=== PATIENT | male | born 1990 | race Caucasian/White ===

== ENCOUNTER 2016-07-17 05:31 | Emergency (ER) | payer OTHER ==
[~2016-07-17] VITALS: Ht 190.5 cm; Wt 75.0 kg
[~2016-07-17 05:31] MED LIST: BACTRIM DS 8001 TAB PO; CEPHALEXIN500 M1 PO; DESYREL 50MG50 MG PO; DOXYCYCLINE 10100 MG PO; LEVOXYL0.025 MG PO; MIRTAZAPINE7.5 MG PO
[2016-07-17] MEDS ORDERED: ZOLOFT 25MG25 MG PO (05:39)
[2016-07-17] MEDS ORDERED: KLONOPIN 0.5MG0.5 MG PO ×2 (05:39→05:40)
[2016-07-17 05:40] VITALS: TEMP 98.1
[2016-07-17 06:28] VITALS: BP 148/89; PULSE 80
== END 2016-07-17 06:30 | disposition home or self-care (01) ==
LOC: COL.ER 05:31
DX: F41.0 Panic disorder [episodic paroxysmal anxiety] (principal); F43.10 Post-traumatic stress disorder, unspecified; T42.4X6A Underdosing of benzodiazepines, initial encounter
CPT/HCPCS: J2060

== ENCOUNTER 2016-07-22 10:27 | Emergency (ER) | payer OTHER ==
[~2016-07-22] VITALS: Ht 190.5 cm; Wt 75.0 kg
[~2016-07-22 10:27] MED LIST changes: +KLONOPIN 0.5MG0.5 MG PO; +ZOLOFT 25MG25 MG PO
[2016-07-22 10:34] VITALS: BP 142/80; TEMP 98.2
[2016-07-22] MEDS ORDERED: ATIVAN 0.50.5 MG/TAB PO (10:52)
[2016-07-22 11:50] VITALS: PULSE 94
== END 2016-07-22 11:51 | disposition home or self-care (01) ==
LOC: COL.ER 10:27
DX: F41.9 Anxiety disorder, unspecified (principal); T42.4X6A Underdosing of benzodiazepines, initial encounter; Z91.138 Patient's unintentional underdosing of medication regimen for other reason; R11.2 Nausea with vomiting, unspecified
CPT/HCPCS: J2060; J7030

== ENCOUNTER 2016-11-01 12:41 | Inpatient (IN) | payer OTHER ==
[~2016-11-01] VITALS: Ht 190.5 cm; Wt 63.6 kg
[~2016-11-01 12:41] MED LIST changes: +ATIVAN 0.50.5 MG/TAB PO
[2016-11-01 13:21] LABS: VENOUS BLOOD GAS BE -9.4 (-4-4); VENOUS BLOOD GAS SAO2 74.4 % (60-80)
[2016-11-01 13:22] LABS: BASO % 0.3 % (0.0-2.0); EOS % 0.1 % (0-4.0); GRAN # 11.7 (1.4-6.5); GRAN % 84.5 % (42.2-75.2); HEMATOCRIT 43.7 % (42.0-52.0); HEMOGLOBIN 15.3 g/dl (13.5-18.0); LYMPH # 0.7 (1.2-3.4); LYMPH % 5.2 % (20.0-51.0); MEAN CELL VOLUME 91 fl (80.0-100.0); MEAN CORPUSCULAR HEMOGLOBIN 32 pg (27.0-31.0); MEAN CORPUSCULAR HGB CONC 35 g/dl (33.0-37.0); MEAN PLATELET VOLUME 8.4 fl (7.4-10.4); MONO # 1.3 (0.1-0.6); MONO % 9.2 % (1.7-9.3); PLATELET COUNT 72 K/mm3 (130-400); RED BLOOD COUNT 4.82 M/mm3 (4.20-5.60); REDCELL DISTRIBUTION WIDTH-CV 11.7 % (11.5-14.5); WHITE BLOOD COUNT 13.8 K/mm3 (4.8-10.8)
[2016-11-01 13:23] LABS: VENOUS BLOOD GAS SITE VENIPUNCTURE
[2016-11-01 13:27] LABS: PROTHROMBIN TIME 11.2 SECONDS (9.7-12.8)
[2016-11-01 13:33] LABS: ADJUSTED CALCIUM 8.4 mg/dL (8.4-10.2); ALANINE AMINOTRANSFERASE 80 U/L (21-72); ALKALINE PHOSPHATASE 113 U/L (50-136); ANION GAP 33 mmol/L (7-16); BILIRUBIN,TOTAL 1.7 mg/dL (0.0-1.0); BLOOD UREA NITROGEN 7 mg/dL (9-20); CALCIUM 9.2 mg/dL (8.4-10.2); CREATININE, serum 0.89 mg/dL (0.66-1.25); GLUCOSE 72 mg/dL (74-106); LIPASE 1274 U/L (23-300); POTASSIUM 4.1 mmol/L (3.4-5.0); SODIUM 134 mmol/L (137-145); TOTAL PROTEIN 8.8 gm/dL (6.4-8.2)
[2016-11-01 13:39] LABS: CARBON DIOXIDE 13 mmol/L (22-30); CHLORIDE 89 mmol/L (98-107)
[2016-11-01 14:55] LABS: PH 5 (5-8); SQUAMOUS EPITHELIAL None Seen /hpf; URINE APPEARANCE Hazy; URINE BACTERIA Rare /hpf; URINE BILIRUBIN Negative (NEGATIVE); URINE BLOOD 2+ (NEGATIVE); URINE COLOR Yellow; URINE GLUCOSE Negative (NEGATIVE); URINE KETONE 2+ (NEGATIVE); URINE RBC 0-2 /hpf; URINE UROBILINOGEN Negative (NEGATIVE); URINE WBC 0-2 /hpf
[2016-11-01 15:48] VITALS: BP 144/103; PULSE 106; TEMP 99.6
[2016-11-01 15:58] VITALS: BP 144/105; PULSE 113; TEMP 99.1
[2016-11-01 17:38] LABS: PHOSPHOROUS 3.7 mg/dL (2.5-4.5)
[2016-11-01 19:40] LABS: CALCIUM 7.5 mg/dL (8.4-10.2); CREATININE, serum 0.71 mg/dL (0.66-1.25); POTASSIUM 3.6 mmol/L (3.4-5.0)
[2016-11-01 20:01] VITALS: BP 126/108; PULSE 107; TEMP 100.2
[2016-11-02] VITALS (10 sets, daily range): BP systolic 120–151; BP diastolic 77–100; PULSE 73–107; TEMP 97.2–99.5
[2016-11-02 06:02] LABS: ADD PATHOLOGY DIFF REVIEW NO
[2016-11-02 06:16] LABS: MEAN CELL VOLUME 90 fl (80.0-100.0); MEAN CORPUSCULAR HGB CONC 35 g/dl (33.0-37.0); MEAN PLATELET VOLUME 8.6 fl (7.4-10.4); PLATELET COUNT 50 K/mm3 (130-400); RED BLOOD COUNT 3.84 M/mm3 (4.20-5.60); REDCELL DISTRIBUTION WIDTH-CV 11.7 % (11.5-14.5); WHITE BLOOD COUNT 4.3 K/mm3 (4.8-10.8)
[2016-11-02 06:26] LABS: HEMATOCRIT 34.5 % (42.0-52.0); HEMOGLOBIN 12.1 g/dl (13.5-18.0); MEAN CORPUSCULAR HEMOGLOBIN 32 pg (27.0-31.0)
[2016-11-02 06:30] LABS: ADJUSTED CALCIUM 8.3 mg/dL (8.4-10.2); ALBUMIN 3.1 gm/dL (3.5-5.0); BILIRUBIN,TOTAL 1.3 mg/dL (0.0-1.0); CALCIUM 7.6 mg/dL (8.4-10.2); CREATININE, serum 0.62 mg/dL (0.66-1.25); MAGNESIUM 2.1 mg/dL (1.6-2.3); PHOSPHOROUS 0.9 mg/dL (2.5-4.5); POTASSIUM 3.7 mmol/L (3.4-5.0); TOTAL PROTEIN 5.9 gm/dL (6.4-8.2)
[2016-11-02 07:10] LABS: BAND 13 % (0-10); EOSINOPHIL 2 % (0-4); NEUTROPHILS 55 % (42.0-75.2); PLATELET ESTIMATE DECREASED (NORMAL); TOTAL CELLS COUNTED 100
[2016-11-03] VITALS (12 sets, daily range): BP systolic 116–147; BP diastolic 73–103; PULSE 65–96; TEMP 97.9–98.7
[2016-11-03 07:43] LABS: BASO % 0.8 % (0.0-2.0); EOS # 0.1 (0.0-0.7); EOS % 1.8 % (0-4.0); GRAN # 2.6 (1.4-6.5); GRAN % 66.2 % (42.2-75.2); HEMATOCRIT 40.1 % (42.0-52.0); HEMOGLOBIN 13.7 g/dl (13.5-18.0); LYMPH # 0.8 (1.2-3.4); LYMPH % 20.6 % (20.0-51.0); MEAN CELL VOLUME 92 fl (80.0-100.0); MEAN CORPUSCULAR HEMOGLOBIN 31 pg (27.0-31.0); MEAN CORPUSCULAR HGB CONC 34 g/dl (33.0-37.0); MEAN PLATELET VOLUME 8.7 fl (7.4-10.4); MONO # 0.4 (0.1-0.6); MONO % 9.8 % (1.7-9.3); PLATELET COUNT 62 K/mm3 (130-400); RED BLOOD COUNT 4.38 M/mm3 (4.20-5.60); REDCELL DISTRIBUTION WIDTH-CV 11.6 % (11.5-14.5); WHITE BLOOD COUNT 3.9 K/mm3 (4.8-10.8)
[2016-11-03 07:56] LABS: INR 1.1 (0.8-3.0); PROTHROMBIN TIME 11.8 SECONDS (9.7-12.8)
[2016-11-03 08:04] LABS: ALANINE AMINOTRANSFERASE 82 U/L (21-72); ALBUMIN 3.6 gm/dL (3.5-5.0); ALKALINE PHOSPHATASE 70 U/L (50-136); ANION GAP 12 mmol/L (7-16); BILIRUBIN,TOTAL 1.1 mg/dL (0.0-1.0); CALCIUM 8.7 mg/dL (8.4-10.2); CARBON DIOXIDE 28 mmol/L (22-30); CHLORIDE 98 mmol/L (98-107); CREATININE, serum 0.59 mg/dL (0.66-1.25); GLUCOSE 86 mg/dL (74-106); POTASSIUM 3.1 mmol/L (3.4-5.0); SODIUM 138 mmol/L (137-145)
[2016-11-03 08:06] LABS: BLOOD UREA NITROGEN < 2 mg/dL (9-20)
[2016-11-03 08:26] LABS: LIPASE 4315 U/L (23-300)
[2016-11-03 11:18] LABS: MAGNESIUM 1.7 mg/dL (1.6-2.3)
[2016-11-03 14:51] LABS: PHOSPHOROUS 2.6 mg/dL (2.5-4.5)
[2016-11-04] VITALS (7 sets, daily range): BP systolic 118–142; BP diastolic 73–100; PULSE 69–100; TEMP 97.9–98.9
[2016-11-04 09:04] LABS: BASO % 0.6 % (0.0-2.0); EOS # 0.1 (0.0-0.7); EOS % 1.5 % (0-4.0); GRAN # 1.9 (1.4-6.5); GRAN % 56.9 % (42.2-75.2); HEMATOCRIT 39.3 % (42.0-52.0); HEMOGLOBIN 13.8 g/dl (13.5-18.0); LYMPH % 28.9 % (20.0-51.0); MEAN CELL VOLUME 91 fl (80.0-100.0); MEAN CORPUSCULAR HEMOGLOBIN 32 pg (27.0-31.0); MEAN CORPUSCULAR HGB CONC 35 g/dl (33.0-37.0); MEAN PLATELET VOLUME 8.5 fl (7.4-10.4); MONO # 0.4 (0.1-0.6); MONO % 11.2 % (1.7-9.3); PLATELET COUNT 83 K/mm3 (130-400); RED BLOOD COUNT 4.31 M/mm3 (4.20-5.60); REDCELL DISTRIBUTION WIDTH-CV 11.6 % (11.5-14.5); WHITE BLOOD COUNT 3.4 K/mm3 (4.8-10.8)
[2016-11-04 09:08] LABS: ADJUSTED CALCIUM 9.3 mg/dL (8.4-10.2); ALBUMIN 3.6 gm/dL (3.5-5.0); BILIRUBIN,TOTAL 0.9 mg/dL (0.0-1.0); CREATININE, serum 0.6 mg/dL (0.66-1.25); MAGNESIUM 1.7 mg/dL (1.6-2.3); PHOSPHOROUS 2.9 mg/dL (2.5-4.5); POTASSIUM 3.1 mmol/L (3.4-5.0); TOTAL PROTEIN 6.9 gm/dL (6.4-8.2)
[2016-11-05 00:20] VITALS: BP 126/92; PULSE 76; TEMP 98
[2016-11-05 04:37] VITALS: BP 125/89; PULSE 75; TEMP 97.7
[2016-11-05 07:31] LABS: HEMOGLOBIN 13.3 g/dl (13.5-18.0); MEAN CELL VOLUME 93 fl (80.0-100.0); MEAN CORPUSCULAR HEMOGLOBIN 32 pg (27.0-31.0); MEAN CORPUSCULAR HGB CONC 34 g/dl (33.0-37.0); MEAN PLATELET VOLUME 8.4 fl (7.4-10.4); PLATELET COUNT 105 K/mm3 (130-400); RED BLOOD COUNT 4.19 M/mm3 (4.20-5.60); REDCELL DISTRIBUTION WIDTH-CV 11.6 % (11.5-14.5); WHITE BLOOD COUNT 2.7 K/mm3 (4.8-10.8)
[2016-11-05 07:38] LABS: ADD PATHOLOGY DIFF REVIEW NO
[2016-11-05 07:48] LABS: ADJUSTED CALCIUM 9.6 mg/dL (8.4-10.2); ALBUMIN 3.5 gm/dL (3.5-5.0); BILIRUBIN,TOTAL 0.9 mg/dL (0.0-1.0); CALCIUM 9.2 mg/dL (8.4-10.2); CREATININE, serum 0.65 mg/dL (0.66-1.25); MAGNESIUM 1.7 mg/dL (1.6-2.3); PHOSPHOROUS 3.2 mg/dL (2.5-4.5); POTASSIUM 3.6 mmol/L (3.4-5.0); TOTAL PROTEIN 6.7 gm/dL (6.4-8.2)
[2016-11-05 08:12] VITALS: BP 132/88; PULSE 94; TEMP 98.7
[2016-11-05 08:22] LABS: BAND 11 % (0-10); BASOPHIL 1 % (0-2); EOSINOPHIL 2 % (0-4); METAMYELOCYTE 1 % (0-0); NEUTROPHILS 41 % (42.0-75.2); PLATELET ESTIMATE DECREASED (NORMAL); TOTAL CELLS COUNTED 100
[2016-11-05 11:22] VITALS: BP 130/82; PULSE 76; TEMP 98.9
[2016-11-05] MEDS ORDERED: ZOLOFT 50MG50 MG PO (12:26)
[2016-11-05] MEDS ORDERED: ATARAX 25MG25 MG/TAB PO (12:27)
[2016-11-05] MEDS ORDERED: FOLIC ACID 11 MG/TA1 PO (12:27)
[2016-11-05] MEDS ORDERED: DUO-KAPS1 CAP PO (12:28)
[2016-11-05] MEDS ORDERED: THIAMINE 1100 MG/TAB PO (12:28)
== END 2016-11-05 14:17 | disposition home or self-care (01) | DRG 640 ==
LOC: COL.ER 12:41 → ICU 15:06 → MEDICAL 15:06
PROVIDERS: Emergency Medicine; Internal Medicine; Physician Assistant
DX: E87.2 Acidosis (principal); K85.20 Alcohol induced acute pancreatitis without necrosis or infection; F10.239 Alcohol dependence with withdrawal, unspecified; E87.6 Hypokalemia; Y90.6 Blood alcohol level of 120-199 mg/100 ml; E83.39 Other disorders of phosphorus metabolism; Z87.891 Personal history of nicotine dependence
CPT/HCPCS: 90791-AI; 99222-AI; 99232-AI; 99233-AI; 99239; J2060; J3411; J3475; J3480; J7030; J7042

== ENCOUNTER 2017-09-26 18:47 | Emergency (ER) | payer OTHER ==
[~2017-09-26] VITALS: Ht 190.5 cm; Wt 75.0 kg
[~2017-09-26 18:47] MED LIST changes: +ATARAX 25MG25 MG/TAB PO; +DUO-KAPS1 CAP PO; +FOLIC ACID 11 MG/TA1 PO; +THIAMINE 1100 MG/TAB PO; +ZOLOFT 50MG50 MG PO
[2017-09-26 18:54] VITALS: TEMP 98.5
[2017-09-26 19:25] LABS: BASO % 0.1 % (0.0-2.0); EOS % 0.1 % (0-4.0); GRAN # 6.5 (1.4-6.5); GRAN % 77.9 % (42.2-75.2); HEMATOCRIT 41.1 % (42.0-52.0); HEMOGLOBIN 13.9 g/dl (13.5-18.0); LYMPH # 1.5 (1.2-3.4); LYMPH % 17.5 % (20.0-51.0); MEAN CELL VOLUME 89 fl (80.0-100.0); MEAN CORPUSCULAR HEMOGLOBIN 30 pg (27.0-31.0); MEAN CORPUSCULAR HGB CONC 34 g/dl (33.0-37.0); MEAN PLATELET VOLUME 9.1 fl (7.4-10.4); MONO # 0.4 (0.1-0.6); MONO % 4.2 % (1.7-9.3); PLATELET COUNT 224 K/mm3 (130-400); RED BLOOD COUNT 4.64 M/mm3 (4.20-5.60); REDCELL DISTRIBUTION WIDTH-CV 11.4 % (11.5-14.5)
[2017-09-26 19:42] LABS: ALANINE AMINOTRANSFERASE 26 U/L (21-72); ALBUMIN 4.5 gm/dL (3.5-5.0); ALKALINE PHOSPHATASE 70 U/L (50-136); ANION GAP 12 mmol/L (7-16); AST,SGOT 23 U/L (15-37); BILIRUBIN,TOTAL 0.6 mg/dL (0.0-1.0); BLOOD UREA NITROGEN 7 mg/dL (9-20); CALCIUM 9.2 mg/dL (8.4-10.2); CARBON DIOXIDE 26 mmol/L (22-30); CHLORIDE 100 mmol/L (98-107); CREATININE, serum 0.94 mg/dL (0.66-1.25); GLUCOSE 121 mg/dL (74-106); POTASSIUM 3.5 mmol/L (3.4-5.0); SODIUM 138 mmol/L (137-145); TOTAL PROTEIN 7.7 gm/dL (6.4-8.2)
[2017-09-26 19:43] LABS: C-REACTIVE PROTEIN < 0.5 mg/dL (0.0-0.9)
[2017-09-26 20:46] VITALS: BP 110/82; PULSE 58
== END 2017-09-26 20:46 | disposition home or self-care (01) ==
LOC: COL.ER 18:47
PROVIDERS: Emergency Medicine
DX: F19.939 Other psychoactive substance use, unspecified with withdrawal, unspecified (principal); F41.9 Anxiety disorder, unspecified
CPT/HCPCS: J2060; J2405; J7030

== ENCOUNTER 2017-09-29 09:37 | Emergency (ER) | payer OTHER ==
[~2017-09-29] VITALS: Ht 190.5 cm; Wt 75.0 kg
[2017-09-29 09:45] VITALS: BP 129/72; TEMP 98
[2017-09-29] MEDS ORDERED: KLONOPIN 0.5MG0.5 MG PO (10:35)
[2017-09-29 11:06] VITALS: PULSE 50
== END 2017-09-29 11:07 | disposition home or self-care (01) ==
LOC: COL.ER 09:37
DX: Z76.0 Encounter for issue of repeat prescription (principal); F41.9 Anxiety disorder, unspecified

== ENCOUNTER 2017-10-29 10:45 | Emergency (ER) | payer OTHER ==
[~2017-10-29] VITALS: Ht 190.5 cm; Wt 68.2 kg
[2017-10-29 10:54] VITALS: BP 118/78; TEMP 98.5
[2017-10-29 11:28] VITALS: PULSE 68
== END 2017-10-29 11:28 | disposition home or self-care (01) ==
LOC: COL.ER 10:45
DX: F43.10 Post-traumatic stress disorder, unspecified (principal); F41.9 Anxiety disorder, unspecified; Z76.0 Encounter for issue of repeat prescription; F17.210 Nicotine dependence, cigarettes, uncomplicated